=== PATIENT | female | born 1940 | race Caucasian/White ===

== ENCOUNTER 2016-07-20 11:15 | Day surgery (SDC) | payer MEDICARE, BC ==
--- NOTE | ~2016-07-20 | EGD ---
EGD REPORT [facility] [address] [id number] NAME: OKSANA RICCI : 40 STATUS : REG [facility] PAT#: [id number] AGE: 75 ADM/REG DATE : 07/20/16 MR#: [id number] REPORT SERV DATE: 07/20/16 DICTATED BY: ZOILA RENE DATE: 07/20/16 REPORT STATUS : Draft TRANSCRIBED BY: [facility] DATE: 07/20/16 [facility] Center Patient Name: Oksana Ricci Date of : 1940 Attending MD: ZOILA RENE MD Procedure Date No Time: 07/20/2016 Procedure: Colonoscopy Indications: FH of Uterine Cancer - 1st degree relative Referring MD: VAHE COMBS MD Medicines: Propofol per Anesthesia Complications: No immediate complications. Estimated blood loss: None. Procedure: Pre-Anesthesia Assessment: - After reviewing the risks and benefits, the patient was deemed in satisfactory condition to undergo the procedure. - Prior to the procedure, a History and Physical was performed, and patient medications and allergies were reviewed. The patient's tolerance of previous anesthesia was also reviewed. The risks and benefits of the procedure and the sedation options and risks were discussed with the patient. All questions were answered, and informed consent was obtained. Prior Anticoagulants: The patient has taken no previous anticoagulant or antiplatelet agents. ASA Grade Assessment: II - A patient with mild systemic disease. After reviewing the risks and benefits, the patient was deemed in satisfactory condition to undergo the procedure. After I obtained informed consent, the scope was passed under direct vision. Throughout the procedure, the patient's blood pressure, pulse, and oxygen saturations were monitored continuously. The CF [id number] was introduced through the anus and advanced to the cecum, identified by appendiceal orifice and ileocecal valve. The colonoscopy was somewhat difficult due to a tortuous colon. Successful completion of the procedure was aided by straightening and shortening the scope to obtain bowel loop reduction. The ileocecal valve and appendiceal orifice were photographed. The patient tolerated the procedure well. The quality of the bowel preparation was good. The bowel preparation used was split dose polyethylene glycol (PEG). Scope withdrawal time was greater than 8 minutes. Findings: The perianal and digital rectal examinations were normal. Pertinent EGD REPORT [address] [address] NAME: OKSANA RICCI : 40 STATUS : REG [facility] PAT#: [id number] AGE: 75 ADM/REG DATE : 07/20/16 MR#: [id number] REPORT SERV DATE: 07/20/16 DICTATED BY: ZOILA RENE DATE: 07/20/16 REPORT STATUS : Draft TRANSCRIBED BY: [employer] DATE: 07/20/16 negatives include normal sphincter tone. Non-bleeding internal hemorrhoids were found during retroflexion and were small and Grade I (internal hemorrhoids that do not prolapse). A few small-mouthed diverticula were found in the sigmoid colon. A sessile polyp was found in the descending colon. The polyp was 5 mm in size. The polyp was removed with a cold biopsy forceps. The polyp was removed with a cold snare. Resection and retrieval were complete. Estimated blood loss: none. The exam was otherwise without abnormality. Impression: - Non-bleeding internal hemorrhoids. - Mild diverticulosis in the sigmoid colon. - One 5 mm polyp in the descending colon. Resected and retrieved. - The examination was otherwise normal. Recommendation: - Discharge patient to home (ambulatory). - High fiber diet indefinitely. - Continue present medications. - Await pathology results. - Repeat colonoscopy in 5 years for surveillance. - Patient has a contact number available for emergencies. The signs and symptoms of potential delayed complications were discussed with the patient. Return to normal activities tomorrow. Written discharge instructions were provided to the patient. Procedure Code(s): --- Professional --- 14331, Colonoscopy, flexible, proximal to splenic flexure; with removal of tumor(s), polyp(s), or other lesion(s) by snare technique Diagnosis Code(s): --- Professional --- K64.0, First degree hemorrhoids K57.30, Diverticulosis of large intestine without perforation or abscess without bleeding D12.4, Benign neoplasm of descending colon Z80.49, Family history of malignant neoplasm of other genital organs CPT copyright 2013 [employer]. All rights reserved. The codes documented in this report are preliminary and upon seafood service team member review may be revised to meet current compliance requirements. EGD REPORT [facility] [address] [id number] NAME: OKSANA RICCI : 40 STATUS : REG [facility] PAT#: [id number] AGE: 75 ADM/REG DATE : 07/20/16 MR#: [id number] REPORT SERV DATE: 07/20/16 DICTATED BY: ZOILA RENE DATE: 07/20/16 REPORT STATUS : Draft TRANSCRIBED BY: [employer] DATE: 07/20/16 ZOILA RENE MD 07/20/2016 1:05 PM This report has been signed electronically. Number of Addenda: 0 Note Initiated On: 07/20/2016 11:39 AM Scope Withdrawal Time 0 hours 8 minutes 44 seconds [address] [id number]
[~2016-07-20 11:15] MED LIST: *UNABLE2; AMB10 PO; ASAB PO; ASCRIPTIN PO; AVINZA90 PO; B12100T PO; BIOTIN5 MG PO; BUPROBAN150 MG PO; CELEXA10 PO; CELEXA40 MG PO; CENTRUM PO; COZ25 PO; DURA12 TOP; ENDOCET1 TA3 PO; FOLIC ACID400 MC1 PO; KONSYL100 % PO; LIOR10 PO; LIPITOR20 PO; LIPITOR40 PO; LORT7 PO; MAXIMUM D3 PO; MEG40 PO; MIRALAXPKT PO; MSCONTIN PO; MULTIPLE VIT PO; NEUR300 PO; NIASPAN500 PO; PERCOCET1 TA4 PO; SEROQUEL50 MG PO; SYN.025B PO; SYN075 PO; VITC500 PO; VITD PO; WELLSR150 PO; ZOFRAN4 PO; [UNRECOGNIZED DRUG - OTHER] PO; [UNRECOGNIZED DRUG - OTHER] PO
== END 2016-07-20 23:59 | disposition home or self-care (01) ==
LOC: DMU 11:15
PROVIDERS: Internal Medicine Gastroenterology
PROC: 0DBM8ZZ Excision of Descending Colon, Via Natural or Artificial Opening Endoscopic (ICD-10-PCS; principal; 2016-07-20 12:15)
DX: D12.4 Benign neoplasm of descending colon (principal); K64.0 First degree hemorrhoids; K57.30 Diverticulosis of large intestine without perforation or abscess without bleeding; G47.33 Obstructive sleep apnea (adult) (pediatric); G89.29 Other chronic pain; M54.9 Dorsalgia, unspecified; E03.9 Hypothyroidism, unspecified; F32.9 Major depressive disorder, single episode, unspecified; N80.9 Endometriosis, unspecified; E78.00 Pure hypercholesterolemia, unspecified; Z98.82 Breast implant status; Z80.49 Family history of malignant neoplasm of other genital organs; Z99.89 Dependence on other enabling machines and devices; Z98.890 Other specified postprocedural states; Z96.1 Presence of intraocular lens
CPT/HCPCS: 88305